=== PATIENT | female | born 1975 | race American Indian/Alaskan Native ===

== ENCOUNTER 2020-11-19 05:52 | Day surgery (SDC) | payer MEDICAID ==
[2020-11-12 10:14] LABS: Hematocrit 41.8 % (30.3-42.9); Hemoglobin 13.4 gm/dl (10.1-14.3); Mean Corpuscular HGB Conc 32 % (30-34); Mean Corpuscular Volume 85 fl (79-97); Platelet Count 188 K/mm3 (140-440); Red Blood Count 4.91 M/mm3 (3.65-5.03); Red Cell Distribution Width 17.5 % (13.2-15.2)
[2020-11-12 10:31] LABS: Calcium 9.2 mg/dL (8.4-10.2)
[2020-11-19] MEDS ORDERED: SCOPOLAMINE TRANSDERMAL PATCH 72 HR TD NR (06:00)
[2020-11-19] MEDS ORDERED: ACETAMINOPHEN 500 MG TAB PO SCH (06:00)
[2020-11-19] MEDS ORDERED: MIDAZOLAM 2 MG/2 ML INJ IV NR (06:00)
[2020-11-19] MEDS ORDERED: GABAPENTIN 300 MG CAP PO NR (06:00)
[2020-11-19] MEDS ORDERED: LACTATED RINGERS 1,000 ML IV SCH (06:00)
[2020-11-19] MEDS ORDERED: CELECOXIB 200 MG CAP PO NR (06:00)
[2020-11-19] MEDS ORDERED: BACTERIOSTATIC SODIUM CHLORIDE 0.9% 30 ML VIAL INFILTRATI ONE (06:17)
--- NOTE | 2020-11-19 06:58 | Anesthesia Consultation ---
Anesthesia Consult and Med Hx Date of service: 11/19/20 - Airway Anesthetic Teeth Evaluation: Good ROM Head & Neck: Adequate Mental/Hyoid Distance: Adequate Mallampati Class: Class II Intubation Access Assessment: Good - Pulmonary Exam CTA: Yes - Cardiac Exam Cardiac Exam: RRR - Pre-Operative Health Status ASA Pre-Surgery Classification: ASA2 Proposed Anesthetic Plan: General - Pulmonary Hx Smoking: No Hx Asthma: Yes (INHALERS PRN) COPD: No Hx Pneumonia: No Hx Sleep Apnea: No (BRITTANY PRE SCREEN LOW RISK) - Cardiovascular System Hx Hypertension: Yes Hx Heart Attack/AMI: No Hx Pacemaker: No Hx Internal Defibrillator: No Hx Heart Murmur: Yes - Central Nervous System Hx Seizures: No Hx Back Pain: No Hx Psychiatric Problems: Yes (MOLESTED CHILD SEVERAL TIMES) - Endocrine Hx End Stage Renal Disease: No Hx Cirrhosis: No Hx Liver Disease: No - Hematic Hx Anemia: No Hx Sickle Cell Disease: No - Other Systems Hx Alcohol Use: No Hx Substance Use: No Hx Cancer: No
--- NOTE | 2020-11-19 06:59 | Anesthesia Day of Surgery ---
Anesthesia Day of Surgery - Day of Surgery Patient Examined: Yes Patient H&P Reviewed: Yes Patient is NPO: Yes
[2020-11-19] MEDS ORDERED: HYDROmorphone 1 MG/1 ML INJ ONE (07:15)
[2020-11-19] MEDS ORDERED: propofoL 200 MG/20 ML VIAL IV ONE (07:16)
[2020-11-19] MEDS ORDERED: ROCURONIUM 50 MG/5 ML INJ IV ONE (07:16)
[2020-11-19] MEDS ORDERED: LIDOCAINE MPF (2%) 20 MG/1 ML VIAL 5 ML ONE (07:16)
[2020-11-19] MEDS ORDERED: ceFAZolin/STERILE WATER 2 GM/20 ML SYRINGE IV NR (07:20)
[2020-11-19] MEDS ORDERED: ONDANSETRON 4 MG/2 ML INJ IV PRN (07:26)
[2020-11-19] MEDS ORDERED: BUPIVACAINE/PF (0.25%) 2.5 MG/ML 30 ML VIAL INFILTRATI ONE (08:18)
[2020-11-19] MEDS ORDERED: SODIUM CHLORIDE 0.9% IRR 1,500 ML BOTTLE IR ONE (08:18)
[2020-11-19] MEDS ORDERED: LIDOCAINE (1%) 10 MG/1 ML VIAL 20 ML MDV INFILTRATI ONE (08:19)
[2020-11-19] MEDS ORDERED: NEOSTIGMINE 10MG/10 ML INJ MDV ONE (09:00)
[2020-11-19] MEDS ORDERED: GLYCOPYRROLATE 0.4 MG/2 ML INJ ONE (09:00)
[2020-11-19] MEDS ORDERED: ONDANSETRON 4 MG/2 ML INJ ONE (09:02)
--- NOTE | 2020-11-19 09:30 | Short Stay Summary ---
"Short Stay Documentation Date of service: 11/19/20 - History Principal diagnosis: UMBILICAL HERNIA H&P: obtained from office - Allergies and Medications Current Medications: Allergies No Known Allergies Allergy (Verified 11/12/20 09:11) Home Medications Medication Instructions Recorded Confirmed Last Taken Type ALBUTEROL NEB's 1 neb INHALATION PRN 11/11/20 11/11/20 3 Months Ago History ~08/19/20 Advair HFA 115-21 mcg 2 puff INHALATION PRN 11/11/20 11/11/20 3 Months Ago History ~08/19/20 Atorvastatin 20 mg PO DAILY 11/11/20 11/11/20 11/18/20 History Hydrochlorothiazide 25 mg PO DAILY 11/11/20 11/11/20 11/18/20 History OLANzapine [ZyPREXA] 10 mg PO DAILY 11/11/20 11/11/20 11/18/20 History ProAir HFA Inhaler 2 puff INHALATION PRN 11/11/20 11/19/20 3 Months Ago History ~08/19/20 Zoloft 5 mg PO DAILY 11/11/20 11/11/20 11/18/20 History lisinopriL [Zestril] 20 mg PO QDAY 11/11/20 11/11/20 11/18/20 History Active Medications Acetaminophen (Acetaminophen 500 Mg Tab) 1,000 mg PO PREOP ABDIEL Stop: 11/19/20 23:59 Last Admin: 11/19/20 06:40 Dose: 1,000 mg Documented by: Cefazolin Sodium (Cefazolin/Sterile Water 2 Gm/20 Ml Syringe) 2 gm IV PREOP NR Stop: 11/19/20 20:00 Celecoxib (Celecoxib 200 Mg Cap) 200 mg PO PREOP NR Stop: 11/19/20 23:59 Last Admin: 11/19/20 06:40 Dose: 200 mg Documented by: Gabapentin (Gabapentin 300 Mg Cap) 300 mg PO PREOP NR Stop: 11/19/20 23:59 Last Admin: 11/19/20 06:40 Dose: 300 mg Documented by: Hydromorphone HCl (Hydromorphone 1 Mg/1 Ml Inj) 0.5 mg IV Q10MIN PRN PRN Reason: Pain , Severe (7-10) Stop: 11/19/20 20:00 Lactated Ringer's (Lactated Ringers) 1,000 mls @ 100 mls/hr IV DIRECT ABDIEL Stop: 11/19/20 23:59 Last Admin: 11/19/20 06:50 Dose: 100 mls/hr Documented by: Midazolam HCl (Midazolam 2 Mg/2 Ml Inj) 2 mg IV PREOP NR Stop: 11/19/20 23:59 Last Admin: 11/19/20 06:55 Dose: 2 mg Documented by: Ondansetron HCl (Ondansetron 4 Mg/2 Ml Inj) 4 mg IV ONCE PRN PRN Reason: Nausea And Vomiting Stop: 11/19/20 20:00 Scopolamine (Scopolamine Transdermal Patch 72 Hr) 1 each TD PREOP NR Stop: 11/23/20 05:59 Last Admin: 11/19/20 06:35 Dose: 1 each Documented by: - Brief post op/procedure progress note Date of procedure: 11/19/20 Pre-op diagnosis: umbilical hernia Post-op diagnosis: same Procedure: open umbilical hernia repair with mesh Anesthesia: GETA, local Findings: 1.5 cm hernia defect repaired with [address] mesh Surgeon: SURINDER ROD System Administration Manager: TIFFANIE ACOSTA Estimated blood loss: minimal Pathology: none Condition: stable - Hospital course Hospital course: Pt observed in PACU and discharged to home in stable condition when criteria met - Disposition Condition at discharge: Good Disposition: DC-01 TO HOME OR SELFCARE Short Stay Discharge Plan Activity: other (no heavy lifting) Diet: regular Wound: open to air, per your surgeon's advice Additional Instructions: General Surgery Surinder Rod DO [address] [facility] | [place] [address] | F ([phone]) [email or web address] You have undergone surgery to repair an umbilical hernia with mesh Diet: Regular diet Make sure to drink plenty of water and stay hydrated Activity: You are encouraged to walk and may go up and down the steps. [address]. [address] if you are taking prescription, narcotic pain medications. 2. Do not do any heavy lifting greater than 15 lbs for next 6 weeks Showering: You may shower tomorrow. Leave outer dressing on for 2 days. Pat incision dry, do not scrub. Do not submerge incision in bathtub, pool, hottub for 2 weeks. Wound care instructions: There is glue on your incisions which will fall off on its own. Pain medications: You may take over the counter tylenol and ibuprofen for pain as needed. If your pain is not controlled with these medications, you have been given a prescription for Percocet. Take exactly as prescribed. If you have any unused prescription pain medication, please return to your pharmacy to have is discarded. You may use ice pack to incisions to help with pain and bruising. Reasons to call Surgeons office: If you have fevers >100.4 If you are having increasing abdominal pain or vomiting If you have pain that is not controlled with prescription pain medications If you have drainage if pus or redness around the incisions. When to come back to see your Surgeon: Please call the office ([phone]) to make an appointment to see the surgeon in 2 week. Call if you have any questions. [address] [facility] Ground floor Follow up with: BRYAN CHAPIN [Other] - 7 Days SURINDER ROD DO [Staff Physician] - 14 Days Prescriptions: Ibuprofen [Motrin 800 MG tab] 800 mg PO Q8HR PRN #30 tablet PRN Reason: Pain, Moderate (4-6) oxyCODONE /ACETAMINOPHEN [Percocet 5/325] 1 tab PO Q6HR PRN #20 tablet PRN Reason: Pain , Severe (7-10)"
[2020-11-19] MEDS: HYDROmorphone 1 MG/1 ML INJ IV PRN ×2 (09:48→10:20)
[2020-11-19] MEDS ORDERED: oxyCODONE /ACETAMINOPHEN 5-325MG TAB PO NR (10:36)
[2020-11-19 12:12] VITALS: BP 129/96
--- NOTE | 2020-11-19 12:22 | Post Anesthesia Evaluation ---
- Post Anesthesia Evaluation Patient Participated: Yes Airway Patent: Yes Stable Respiratory Function: Yes Nausea/Vomiting: No Temp > 96.8F: Yes Pain Manageable: Yes Adequeate Hydration: Yes Anesthesia Complications: No
--- NOTE | 2020-11-19 12:42 | Operative Report ---
Operative Report Operative Report: Date of procedure: 11/19/20 Pre-op diagnosis: umbilical hernia Post-op diagnosis: same Procedure: open umbilical hernia repair with mesh Anesthesia: CARLOS local Findings: 1.5 cm hernia defect repaired with [address] mesh Surgeon: SURINDER ROD Pack Out Operator: TIFFANIE ACOSTA Estimated blood loss: minimal Pathology: none Condition: stable Hospital course: Pt observed in PACU and discharged to home in stable condition when criteria met HPI indication: Patient is a 45-year-old female who presented to the surgery clinic with an umbilical hernia. The patient was having more discomfort in the area and elected to have this fixed. All risk, benefits, alternatives to surgery discussed with patient questions answered. Consent was obtained. Procedure in detail: Patient was identified in the preoperative area, taken back to the operating room and placed on the operating room table in supine position. After anesthesia was induced the abdomen was prepped and draped in usual sterile fashion timeout performed. Local anesthetic was infiltrated into skin at intended incision site. An inverted semilunar incision was made at the superior aspect of the umbilicus using a 10 blade. Dissection was carried down through skin and subcutaneous tissue using Bovie electrocautery until the hernia was encountered. The hernia sac and its contents were circumferentially dissected free from the surrounding tissue and umbilicus using a hemostat and electrocautery, and transected. The fascia was identified and freed of overlying tissue circumferentially. The fascial defect was less 1.5 cm. A [address] composite mesh was placed into the abdomen through the defect and ensured to lay flat against the abdominal wall. This was sutured in place using 2-0 PDS suture circumfrentially with tabs incorportated into the stitches. The tabs were cut flush with the fascia. The fascia was closed over the mesh using 0-vicryl interrupted stitches. The umbilicus was tacked down to the fascia using a 3-0 Vicryl interrupted stitch. The subcutaneous tissue was irrigated and hemostasis was carefully ensured. The deep dermal layer was closed using 3-0 Vicryl interrupted sutures. The skin was approximated using 4-0 Monocryl subcuticular running stitch and skin glue. After the glue was dry a 4 x 4 fluff gauze was placed in the umbilicus and secured with a Tegaderm. At the end of the case, all sponge, instrument, sharp counts were correct x2. The patient was awoken from anesthesia extubated and taken to PACU in stable condition.
== END 2020-11-19 11:30 | disposition home or self-care (01) ==
LOC: OR 05:52
PROVIDERS: ATTEND Surgery
DX: K42.9 Umbilical hernia without obstruction or gangrene (principal); E78.00 Pure hypercholesterolemia, unspecified; I10 Essential (primary) hypertension; K21.9 Gastro-esophageal reflux disease without esophagitis; F41.9 Anxiety disorder, unspecified; F31.9 Bipolar disorder, unspecified; Z98.890 Other specified postprocedural states; Z86.19 Personal history of other infectious and parasitic diseases; Z79.899 Other long term (current) drug therapy; Z98.51 Tubal ligation status; Z87.442 Personal history of urinary calculi
CPT/HCPCS: 36415; 49585; 80048; 84703; 85027; C1781; J0690; J1170; J2250; J2405; J2704; J2710; J7120; U0003